=== PATIENT | male | born 1995 | race Caucasian/White ===

== ENCOUNTER 2025-01-06 18:02 | Observation (INO) ==
[2025-01-06] MEDS ORDERED: IOPAMIDOL 100 ML BOTTLE IV ONE (18:03)
[2025-01-06] MEDS: ONDANSETRON 4 MG/2 ML VIAL IV ONE (19:18)
[2025-01-06] MEDS: 0.9 % SODIUM CHLORIDE 1,000 ML IV ONE (19:18)
[2025-01-06] MEDS: morphine 2 MG/ML VIAL IV PRN (19:18)
[2025-01-06] MEDS: KETOROLAC 15 MG/ML VIAL IV ONE (19:56)
[2025-01-06] MEDS: ACETAMINOPHEN 325 MG TABLET PO ONE (19:56)
[2025-01-06 21:03] LABS: Basophils # (Auto) 0.05 K/mcL (0.00-0.30); Basophils % (Auto) 0.3 % (0.0-2.0); Eosinophils # (Auto) 0.02 K/mcL (0.00-0.70); Eosinophils % (Auto) 0.1 % (0.0-7.0); Hematocrit 42.3 % (40.1-51.0); Hemoglobin 14.3 g/dL (13.7-17.5); Lymphocytes # (Auto) 1.65 K/mcL (1.50-4.80); Mean Cell Volume 86.7 fL (80.0-100.0); Mean Corpuscular HGB Conc 33.8 g/dL (31.0-36.0); Mean Platelet Volume 9.7 fL (8.8-12.5); Monocytes # (Auto) 1.12 K/mcL (0.10-0.90); Monocytes % (Auto) 6.8 % (1.0-12.0); Neutrophils % (Auto) 82.6 % (38.0-78.0); Platelet Count 282 K/mcL (140-440); RBC 4.88 M/mcL (4.63-6.08); Red Cell Distribution Width 12.2 % (11.5-14.5); WBC 16.5 K/mcL (4.5-11.0)
[2025-01-06 21:21] LABS: ALT/SGPT 41 U/L (<40); AST/SGOT 21 U/L (<40); Albumin 4.3 gm/dL (3.2-5.2); Albumin/Globulin Ratio 1.9 (1.0-2.3); Alkaline Phosphatase 67 U/L (39-117); Bilirubin,Total 0.4 mg/dL (0.1-1.0); Blood Urea Nitrogen 14 mg/dL (6-20); Calcium 8.9 mg/dL (8.6-10.4); Carbon Dioxide 25 mmol/L (22-30); Chloride 101 mmol/L (96-108); Globulin 2.3 gm/dL (2.2-3.7); Glomerular Filtration Rate 122; Glucose 110 mg/dL (70-105); Potassium 4.3 mmol/L (3.3-5.1); Sodium 137 mmol/L (133-145)
[2025-01-06] MEDS ORDERED: ONDANSETRON 4 MG/2 ML VIAL IV PRN (22:44)
[2025-01-06] MEDS: DEXTROSE 5%-NS 1,000 ML IV SCH (23:37)
[2025-01-07 00:02] LABS: Blood Urea Nitrogen 12 mg/dL (6-20); Calcium 8.6 mg/dL (8.6-10.4); Carbon Dioxide 22 mmol/L (22-30); Chloride 101 mmol/L (96-108); Glomerular Filtration Rate 117; Glucose 123 mg/dL (70-105); Potassium 4.4 mmol/L (3.3-5.1); Sodium 135 mmol/L (133-145)
[2025-01-07] MEDS: HYDROmorphone 0.5 MG/0.5 ML SYRINGE IV PRN (00:16)
[2025-01-07] MEDS: PIPERACILLIN SODIUM/TAZOBACTAM 4.5 GM in DEXTROSE 5% IN WATER 100 ML IV SCH (00:17)
[2025-01-07 06:20] LABS: Hematocrit 41.1 % (40.1-51.0); Hemoglobin 13.9 g/dL (13.7-17.5); Mean Cell Volume 88.2 fL (80.0-100.0); Mean Corpuscular HGB Conc 33.8 g/dL (31.0-36.0); Mean Platelet Volume 9.7 fL (8.8-12.5); Platelet Count 269 K/mcL (140-440); RBC 4.66 M/mcL (4.63-6.08); Red Cell Distribution Width 12.6 % (11.5-14.5); WBC 14.8 K/mcL (4.5-11.0)
[2025-01-07] MEDS: ACETAMINOPHEN 650 MG/65 ML BAG IV PRN (07:58)
[2025-01-07] MEDS ORDERED: PROPOFOL 200 MG/20 ML VIAL IV ONE (08:53)
[2025-01-07] MEDS ORDERED: SUGAMMADEX SODIUM 200 MG/2 ML VIAL IV ONE (08:53)
[2025-01-07] MEDS ORDERED: fentaNYL 100 MCG/2 ML VIAL ONE (08:53)
[2025-01-07] MEDS ORDERED: MIDAZOLAM 2 MG/2 ML VIAL ONE (08:53)
[2025-01-07] MEDS ORDERED: GLYCOPYRROLATE 0.2 MG/ML VIAL IV ONE (08:54)
[2025-01-07] MEDS ORDERED: DEXAMETHASONE 10 MG/ML VIAL ONE (08:54)
[2025-01-07] MEDS ORDERED: ONDANSETRON 4 MG/2 ML VIAL ONE (08:54)
[2025-01-07] MEDS ORDERED: ROCURONIUM 10 MG/ML ML IV ONE ×3 (08:54→10:35)
[2025-01-07] MEDS ORDERED: KETAMINE 50 MG/ML Syringe IV ONE (08:55)
[2025-01-07] MEDS: BUPIVACAINE W/EPI 0.25% 50 ML VIAL IJ ONE (10:19)
[2025-01-07] MEDS ORDERED: MAGNESIUM SULFATE 2 GM/50 ML BAG IV ONE (10:29)
[2025-01-07] MEDS ORDERED: ePHEDrine 50 MG/5 ML SYRINGE (ANEST) IV ONE (10:29)
[2025-01-07] MEDS ORDERED: FAMOTIDINE/PF 20 MG/2 ML VIAL IV ONE (10:35)
[2025-01-07] MEDS ORDERED: DEXMEDETOMIDINE HCL 200 MCG/2 ML VIAL ONE (10:46)
[2025-01-07] MEDS ORDERED: HYDROmorphone 0.5 MG/0.5 ML SYRINGE ONE (10:52)
[2025-01-07] MEDS ORDERED: BENZOCAINE/MENTHOL 1 LOZENGE PO PRN (10:53)
[2025-01-07] MEDS ORDERED: fentaNYL 100 MCG/2 ML VIAL IV PRN (10:53)
[2025-01-07] MEDS ORDERED: IPRATROPIUM/ALBUTEROL 3 ML AMPUL.NEB NEB PRN (10:53)
[2025-01-07] MEDS ORDERED: ONDANSETRON 4 MG/2 ML VIAL IV PRN (10:53)
[2025-01-07] MEDS: 0.9 % SODIUM CHLORIDE 1,000 ML IV SCH (15:30)
[2025-01-07] MEDS: HYDROcodone/APAP 5/325MG TABLET PO PRN (16:01)
[2025-01-07] MEDS: LACTATED RINGERS 1,000 ML IV SCH (17:08)
[2025-01-08 05:54] LABS: Hematocrit 40.3 % (40.1-51.0); Hemoglobin 13.4 g/dL (13.7-17.5); Mean Cell Volume 89.4 fL (80.0-100.0); Mean Corpuscular HGB Conc 33.3 g/dL (31.0-36.0); Mean Platelet Volume 9.6 fL (8.8-12.5); Platelet Count 270 K/mcL (140-440); RBC 4.51 M/mcL (4.63-6.08); Red Cell Distribution Width 12.5 % (11.5-14.5); WBC 14.5 K/mcL (4.5-11.0)
[2025-01-08 06:28] LABS: Blood Urea Nitrogen 7 mg/dL (6-20); Calcium 8.4 mg/dL (8.6-10.4); Carbon Dioxide 24 mmol/L (22-30); Chloride 103 mmol/L (96-108); Glomerular Filtration Rate 122; Glucose 116 mg/dL (70-105); Sodium 138 mmol/L (133-145)
[2025-01-08 06:53] VITALS: TEMP 98.4
[2025-01-08 13:38] VITALS: O2SAT 98
== END 2025-01-08 13:46 | disposition home or self-care (01) ==
LOC: MEDSUR 18:02 → ED 18:02 → MEDSUR 23:25
PROVIDERS: ADMIT Surgery Surgical Critical Care; ATTEND Surgery Surgical Critical Care
PROC: LAPAPPY (ICD-10-PCS; 2025-01-07 09:55)